=== PATIENT | male | born 1975 | race Caucasian/White ===

== ENCOUNTER 2019-09-10 15:13 | Emergency (ER) | payer MEDICARE, MEDICAID, SELFPAY ==
[2019-09-10 15:21] VITALS: BP 179/111; PULSE 91; RESP 18; TEMP 36.6; O2SAT 97; BMI 25.1
--- NOTE | 2019-09-10 15:33 | [facility].EDGENADL ---
ED Disposition Clinical Impression: Acevedo's palsy Disposition: Home, Self-Care Condition on Discharge: Good Instructions: DI for Acevedo's Palsy Additional Instructions: Apply Refresh Tears 3 times daily and keep eye lid closed until patient can close his eyelid on his own. Follow-up with primary care provider in 2 to 3 days for reevaluation. Return to the emergency department for any acute new concerns. Prescriptions: Acyclovir [Zovirax 400mg tablet] 400 mg PO 5XDAY 10 Days tab Prescription Printed Referrals: Provider,Referral, [Primary Care Provider] - - Critical Care Critical Care Time: No Attestation: On 09/10/19, the high probability of a clinically significant, sudden or life threatening deterioration of the following system(s) required my full and direct attention, intervention and personal management. The time I documented below is in addition to time spent performing reported procedures but includes the following listed in this critical care notation. Medical Decision Making - Medical Records Medical records reviewed: Yes: I reviewed the patient's medical records. - Sunny Inquiry Pt receiving controlled substance: No Medical Decision Narrative: Patient with Acevedo's palsy. He has peripheral nerve involvement of the facial nerve, not central involvement. I believe this is likely unrelated to the book falling on his head, but regardless there are no signs of trauma from the book injury from 3 days ago. Eye was taped closed and caregiver was advised to apply Refresh Tears 3 times daily and keep the eye closed until the patient can close his eye himself. Prescribed acyclovir and steroids, follow-up with PCP on Thursday General Adult HPI - General Stated complaint: 09/07/19 Books fell of shelf, hit pt in face Time Seen by Provider: 09/10/19 15:33 Source of Information: Patient (And caregiver) Limitations: No Limitations - History of Present Illness HPI narrative: This is a 43-year-old male with a past medical history significant for seizure disorder and learning disability who presents to the emergency department for left facial droop and difficulty closing his left eye, headaches for the last several days. History is mainly told by his caregiver. He has not had any recent seizures. He had a book fall on his head about 3 days ago and he had some swelling on his scalp, but that has resolved. No recent fevers. No lateralizing extremity changes. No other exacerbating or alleviating factors. - Related Data Previous Rx's Medication Instructions Recorded Acyclovir [Zovirax 400mg tablet] 400 mg PO 5XDAY 10 Days tab 09/10/19 [facility] History - Hepatitis A Screen Attestation statement:: This patient has been screened for Hepatitis A risk factors. I have reviewed the patient's past medical history: Yes ROS Obtained: Yes All systems reviewed & no additional complaints Physical Exam - General General appearance: alert, in no apparent distress - Head Head exam: atraumatic, normocephalic - Eye Eye exam: Present: PERRL, other (L eye: Cannot close eye completely. No conjunctival injection. Drainage.) - ENT ENT exam: Present: normal exam, mucous membranes moist, TM's normal bilaterally - Neck Neck exam: Present: normal inspection, trachea midline - Chest Chest inspection: Present: normal inspection, symmetric chest wall rise - Respiratory Respiratory exam: Present: normal lung sounds bilaterally. Absent: respiratory distress - Cardiovascular Cardiovascular exam: Present: regular rate, normal rhythm, JVD - Neurological Exam Neurological exam: Present: alert, other (Living all extremities with equal strength. Cannot wrinkle left forehead, left facial droop present, cannot completely close left eye) - Skin Skin exam: Present: warm, dry
[2019-09-10 15:41] VITALS: BMI 25.1
[2019-09-10 16:01] VITALS: BP 170/90; PULSE 89; RESP 20; TEMP 36.6; O2SAT 97
== END 2019-09-10 16:01 | disposition home or self-care (01) ==
PROVIDERS: Emergency Provider Emergency Medicine
DX: G51.0 Bell's palsy (principal)
CPT/HCPCS: 99281